=== PATIENT | male | born 1970 | race Two or more races ===

== ENCOUNTER 2016-04-10 15:38 | Inpatient (IN) | payer BC, OTHER ==
[2016-04-10 17:15] VITALS: BMI 21.5
--- NOTE | 2016-04-10 22:31 | HP ---
CIWA Score - CIWA Score Nausea/Vomitin-Mild Nausea/No Vomiting Muscle Tremors: 4-Moderate,w/Arms Extend Anxiety: 4-Mod. Anxious/Guarded Agitation: 4-Moderately Restless Paroxysmal Sweats: 2 Orientation: 0-Oriented Tacttile Disturbances: 0-None Auditory Disturbances: 0-None Visual Disturbances: 0-None Headache: 0-None Present CIWA-Ar Total Score: 15 Admission ROS BHS - HPI Chief Complaint: WITHDRAWAL SX Allergies/Adverse Reactions: Allergies Allergy/AdvReac Type Severity Reaction Status Date / Time shellfish derived Allergy Verified 04/10/16 22:28 History of Present Illness: 46 YEARS OLD MALE WITH LONG HISTORY OF ALCOHOL NICOTINE DEPENDENCE, DENIES MEDICAL HAS DEPRESSION IS ADMITTED TO DETOX Exam Limitations: No Limitations - Ebola screening Have you traveled outside of the country in the last 21 days: No Have you had contact with anyone from an Ebola affected area: No Have you been sick,other than usual withdrawal symptoms: No Do you have a fever: No - Review of Systems Constitutional: Chills, Loss of Appetite, Changes in sleep, Unintentional Wgt. Loss EENT: reports: No Symptoms Reported Respiratory: reports: No Symptoms reported Cardiac: reports: No Symptoms Reported GI: reports: Nausea, Poor Appetite, Poor Fluid Intake, Indigestion, Abdominal cramping : reports: No Symptoms Reported Musculoskeletal: reports: No Symptoms Reported Integumentary: reports: No Symptoms Reported Neuro: reports: Tremors Endocrine: reports: No Symptoms Reported Hematology: reports: No Symptoms Reported Psychiatric: reports: Judgement Intact, Depressed Other Systems: Reviewed and Negative Patient History - Patient Medical History Hx Anemia: No Hx Asthma: No Hx Chronic Obstructive Pulmonary Disease (COPD): No Hx Cancer: No Hx Cardiac Disorders: No Hx Congestive Heart Failure: No Hx Hypertension: No Hx Hypercholesterolemia: No Hx Pacemaker: No HX Cerebrovascular Accident: No Hx Seizures: No Hx Dementia: No Hx Diabetes: No Hx Gastrointestinal Disorders: No Hx Liver Disease: No Hx Genitourinary Disorders: No Hx Sexually Transmitted Disorders: No Hx Renal Disease (ESRD): No Hx Thyroid Disease: No Hx Human Immunodeficiency Virus (HIV): No Hx Hepatitis C: No Hx Depression: Yes Hx Suicide Attempt: Yes (AGE 20 CUT WRIST RIGHT) Hx Bipolar Disorder: No Hx Schizophrenia: No - Patient Surgical History Past Surgical History: No - PPD History Previous Implant?: Yes Documented Results: Negative w/o proof Implanted On Prior [facility] Admission?: No PPD to be Administered?: Yes - Smoking Cessation Smoking history: Current every day smoker Have you smoked in the past 12 months: Yes Aproximately how many cigarettes per day: 10 Cigars Per Day: 0 Hx Chewing Tobacco Use: No Initiated information on smoking cessation: Yes 'Breaking Loose' booklet given: 04/10/16 - Substance & Tx. History Hx Alcohol Use: Yes Hx Substance Use: Yes Substance Use Type: Alcohol, Cocaine Hx Substance Use Treatment: Yes - Substances Abused Alcohol Route: Oral Frequency: Daily Amount used: PINT VOLKA Age of first use: 13 Date of Last Use: 04/10/16 Family Disease History - Family Disease History Family Disease History: Other: Father (), Mother ( BRAIN ANEURYTHSM) Admission Physical Exam S - Vital Signs Vital Signs: Vital Signs - 24 hr 04/10/16 17:12 Temperature 96.8 F L Pulse Rate 103 H Respiratory 20 Rate Blood Pressure 114/60 - Physical General Appearance: Yes: Appropriately Dressed, Mild Distress, Thin, Tremorous, Irritable, Sweating, Anxious HEENTM: Yes: Hearing grossly Normal, Normal ENT Inspection, Normocephalic, Normal Voice Respiratory: Yes: Chest Non-Tender, Lungs Clear, Normal Breath Sounds, No Respiratory Distress, No Accessory Muscle Use Neck: Yes: Supple, Trachea in good position Breast: Yes: Breasts Symetrical Cardiology: Yes: Regular Rhythm, Regular Rate, S1, S2 Abdominal: Yes: Non Tender, Soft Genitourinary: Yes: Within Normal Limits Back: Yes: Normal Inspection Musculoskeletal: Yes: full range of Motion, Gait Steady Extremities: Yes: Normal Range of Motion, Non-Tender, Tremors Neurological: Yes: Fully Oriented, Alert, Motor Strength 5/5, Normal Response, Depressed Affect Integumentary: Yes: Normal Color, Warm Lymphatic: Yes: Within Normal Limits - Diagnostic (1) Alcohol dependence with uncomplicated withdrawal Current Visit: Yes Status: Acute (2) Nicotine dependence Current Visit: Yes Status: Acute Qualifiers: Nicotine product type: cigarettes Substance use status: uncomplicated Qualified Code(s): F17.210 - Nicotine dependence, cigarettes, uncomplicated (3) Weight loss Current Visit: Yes Status: Acute (4) Depression (emotion) Current Visit: Yes Status: Suspected Qualifiers: Depression Type: dysthymia Qualified Code(s): F34.1 - Dysthymic disorder Cleared for Admission [facility] - Detox or Rehab [facility] Level of Care: Medically Managed Detox Regimen/Protocol: Librium [facility] Breath Alcohol Content Breath Alcohol Content: 0 Urine Drug Screen - Results Drug Screen Negative: No Urine Drug Screen Results: GISSELLE-Cocaine
[2016-04-10] MEDS ORDERED: P-EPHED 60MG/TRIPROLIDI 2.5MG TABLET PO PRN (22:35)
[2016-04-10] MEDS ORDERED: ACETAMINOPHEN 325 MG TABLET (FP) PO PRN (22:35)
[2016-04-10] MEDS ORDERED: LOPERAMIDE HCL 2 MG CAPSULE PO PRN (22:35)
[2016-04-10] MEDS ORDERED: chlordiazePOXIDE HCL 25 MG CAPSULE PO PRN (22:35)
[2016-04-10] MEDS ORDERED: NICOTINE POLACRILEX 2 MG GUM BC PRN (22:35)
[2016-04-10] MEDS ORDERED: MAGNESIUM CITRATE 300 ML BOTTLE PO PRN (22:35)
[2016-04-10] MEDS ORDERED: MAG HYDROX/AL HYDROX/SIMETH 30 ML UNIT-DOSE CUP PO PRN (22:35)
[2016-04-10] MEDS ORDERED: IBUPROFEN 400 MG TABLET (FP) PO PRN (22:35)
[2016-04-10] MEDS ORDERED: guaiFENesin/D-METHORPHAN HB 10 ML UNIT-DOSE CUPS PO PRN (22:35)
[2016-04-10] MEDS ORDERED: hydrOXYzine PAMOATE 50 MG CAPSULE (FP) PO PRN (22:35)
[2016-04-10] MEDS ORDERED: MAGNESIUM HYDROX 2400MG/30ML ORAL SUSPENSION 30 ML CUP PO PRN (22:35)
[2016-04-10] MEDS ORDERED: diphenhydrAMINE HCL 50 MG CAPSULE PO PRN (22:35)
[2016-04-10] MEDS ORDERED: MENTHOL/PHENOL 1 EACH UD MM PRN (22:35)
[2016-04-10] MEDS: chlordiazePOXIDE HCL 25 MG CAPSULE PO SCH (23:49)
[2016-04-11] MEDS: chlordiazePOXIDE HCL 25 MG CAPSULE PO SCH ×4 (06:00→22:04)
--- NOTE | 2016-04-11 09:09 | CONSULT ---
[facility] Psychiatric Consult - Data Date of interview: 04/11/16 Admission source: [facility] Identifying data: This is 46 years old male with no psychiatric hospitalization history intoxicated with : Alcohol, and Nicotine Substance Abuse History: - Smoking Cessation. Smoking history: Current every day smoker. Have you smoked in the past 12 months: Yes. Aproximately how many cigarettes per day: 10. Cigars Per Day: 0. Hx Chewing Tobacco Use: No. Initiated information on smoking cessation: Yes. 'Breaking Loose' booklet given : 04/10/16. - Substance & Tx. History. Hx Alcohol Use: Yes. Hx Substance Use : Yes. Substance Use Type: Alcohol, Cocaine. Hx Substance Use Treatment: Yes. - Substances Abused. Alcohol. Route: Oral. Frequency: Daily. Amount used: PINT VOLKA. Age of first use: 13. Date of Last Use: 04/10/16 Medical History: Weight loss history, Psychiatric History: Patient reports history of anxiety and depression, refusing pharmacological intervention, as per computer has a histry taking: Trazodone 100mg po qhs. Wellbutrin 100mg po qhs(?) Physical/Sexual Abuse/Trauma History: Denies Additional Comment: Trazodone 100mg po qhs. Wellbutrin 100mg po qhs(?) Mental Status Exam - Mental Status Exam Alert and Oriented to: Person Cognitive Function: Fair Patient Appearance: Unkempt Mood: Sad Affect: Flat Patient Behavior: Sedated Speech Pattern: Delayed Voice Loudness: Mildly Soft/Quiet Thought Process: Circumstantial Thought Disorder: Present Hallucinations: Denies Suicidal Ideation: Denies Homicidal Ideation: Denies Insight/Judgement: Fair Sleep: Fair Appetite: Weight loss Muscle strength/Tone: Moderate Hypotonicity Gait/Station: Shuffling Additional Comments: Trazodone 100mg po qhs. Wellbutrin 100mg po qhs(?) Psychiatric Findings - Problem List ([place] 1, 2,3) (1) Alcohol dependence with uncomplicated withdrawal Current Visit: Yes Status: Acute (2) Nicotine dependence Current Visit: Yes Status: Acute Qualifiers: Nicotine product type: cigarettes Substance use status: uncomplicated Qualified Code(s): F17.210 - Nicotine dependence, cigarettes, uncomplicated (3) Drug-induced mood disorder Current Visit: Yes Status: Acute (4) Alcohol induced hypersomnia Current Visit: Yes Status: Acute (5) Alcohol-induced mood disorder Current Visit: Yes Status: Acute - Initial Treatment Plan Initial Treatment Plan: Trazodone 100mg po qhs. Wellbutrin 100mg po qhs(?)
--- NOTE | 2016-04-11 09:20 | PN ---
S CIWA - CIWA Score Nausea/Vomitin Muscle Tremors: 3 Anxiety: 3 Agitation: 2 Paroxysmal Sweats: 1-Minimal Palms Moist Orientation: 0-Oriented Tacttile Disturbances: 1-Very Mild Itch/Numbness Auditory Disturbances: 1-Very Mild Visual Disturbances: 1-Very Mild Sensitivity Headache: 2-Mild CIWA-Ar Total Score: 17 BHS Progress Note (SOAP) Subjective: ALERT,IRRITABLE,ANXIOUS,INTERRUPTED SLEEP,TREMOR Objective: 04/11/16 09:19 Vital Signs Temperature 97.0 F L 04/11/16 06:23 Pulse Rate 80 04/11/16 06:23 Respiratory Rate 16 04/11/16 06:23 Blood Pressure 99/67 04/11/16 06:23 O2 Sat by Pulse Oximetry (%) EKG NSR LABS PENDING Assessment: 04/11/16 09:20 WITHDRAWAL SYMPTOM Plan: CONTINUE DETOX
[2016-04-11] MEDS: NICOTINE 14 MG/24 HOURS TOPICAL PATCH TD SCH (10:10)
[2016-04-11] MEDS: PRENATAL VITAMINS W/ FOLIC ACID TABLET (FP) PO SCH (10:10)
[2016-04-11 10:19] LABS: MCH 32.1 pg (25.7-33.7); MEAN CELL VOLUME 97.1 fl (80-96); MEAN PLT VOLUME 8.7 fl (7.5-11.1); PLATELET COUNT 149 K/MM3 (134-434); RDW 13.3 % (11.9-15.9); WHITE BLOOD COUNT 4.6 K/mm3 (4.0-10.0)
[2016-04-11 10:51] LABS: ALBUMIN 3.7 g/dl (3.4-5.0); BILIRUBIN,TOTAL 0.8 mg/dL (0.2-1.0); CALCIUM 8.7 mg/dL (8.5-10.1); CREATININE 1.3 mg/dL (0.7-1.3); TOT PROT 6.8 g/dl (6.4-8.2)
[2016-04-11 17:24] LABS: URINE APPEARANCE CLEAR; URINE BILIRUBIN NEGATIVE (NEGATIVE); URINE BLOOD NEGATIVE (NEGATIVE); URINE COLOR DKYELLOW; URINE GLUCOSE (UA) NEGATIVE (NEGATIVE); URINE KETONE NEGATIVE (NEGATIVE); URINE LEUK ESTERASE NEGATIVE (NEGATIVE); URINE NITRITE NEGATIVE (NEGATIVE); URINE PROTEIN NEGATIVE (NEGATIVE); URINE UROBILINOGEN 2.0 E.U/dl E.U./dl (0.2-1.0)
[2016-04-11 19:44] LABS: HIV 1 & 2 AB NEGATIVE; HIV 1 AGp24 NEGATIVE
[2016-04-11] MEDS: THIAMINE HCL 100 MG TABLET (FP) PO SCH (22:04)
[2016-04-12] MEDS: chlordiazePOXIDE HCL 25 MG CAPSULE PO SCH ×3 (05:18→17:14)
--- NOTE | 2016-04-12 09:06 | PN ---
S CIWA - CIWA Score Nausea/Vomitin Muscle Tremors: 3 Anxiety: 3 Agitation: 3 Paroxysmal Sweats: 1-Minimal Palms Moist Orientation: 0-Oriented Tacttile Disturbances: 1-Very Mild Itch/Numbness Auditory Disturbances: 1-Very Mild Visual Disturbances: 1-Very Mild Sensitivity Headache: 2-Mild CIWA-Ar Total Score: 18 BHS Progress Note (SOAP) Subjective: alert,irritable,anxious,interrupted sleep,tremor Objective: 04/12/16 09:05 Vital Signs Temperature 98 F 04/12/16 06:12 Pulse Rate 83 04/12/16 06:12 Respiratory Rate 18 04/12/16 06:12 Blood Pressure 104/73 04/12/16 06:12 O2 Sat by Pulse Oximetry (%) Laboratory Last Values WBC 4.6 K/mm3 (4.0-10.0) 04/11/16 07:00 RBC 4.44 M/mm3 (4.00-5.60) 04/11/16 07:00 Hgb 14.2 GM/dL (11.7-16.9) 04/11/16 07:00 Hct 43.1 % (35.4-49) 04/11/16 07:00 MCV 97.1 fl (80-96) H 04/11/16 07:00 MCHC 33.0 g/dl (32.0-35.9) 04/11/16 07:00 RDW 13.3 % (11.9-15.9) 04/11/16 07:00 Plt Count 149 K/MM3 (134-434) 04/11/16 07:00 MPV 8.7 fl (7.5-11.1) 04/11/16 07:00 Sodium 145 mmol/L (136-145) 04/11/16 07:00 Potassium 3.8 mmol/L (3.5-5.1) 04/11/16 07:00 Chloride 108 mmol/L (98-107) H 04/11/16 07:00 Carbon Dioxide 29 mmol/L (21-32) 04/11/16 07:00 Anion Gap 8 (8-16) 04/11/16 07:00 BUN 14 mg/dL (7-18) 04/11/16 07:00 Creatinine 1.3 mg/dL (0.7-1.3) 04/11/16 07:00 Creat Clearance w eGFR 59.70 (>60) 04/11/16 07:00 Random Glucose 89 mg/dL (74-106) 04/11/16 07:00 Calcium 8.7 mg/dL (8.5-10.1) 04/11/16 07:00 Total Bilirubin 0.8 mg/dL (0.2-1.0) 04/11/16 07:00 AST 16 U/L (15-37) 04/11/16 07:00 ALT 25 U/L (12-78) 04/11/16 07:00 Alkaline Phosphatase 65 U/L (45-117) 04/11/16 07:00 Total Protein 6.8 g/dl (6.4-8.2) 04/11/16 07:00 Albumin 3.7 g/dl (3.4-5.0) 04/11/16 07:00 Urine Color Dkyellow 04/11/16 15:00 Urine Appearance Clear 04/11/16 15:00 Urine pH 5.0 (5.0-8.0) 04/11/16 15:00 Ur Specific [place] 1.025 (1.001-1.035) 04/11/16 15:00 Urine Protein Negative (NEGATIVE) 04/11/16 15:00 Urine Glucose (UA) Negative (NEGATIVE) 04/11/16 15:00 Urine Ketones Negative (NEGATIVE) 04/11/16 15:00 Urine Blood Negative (NEGATIVE) 04/11/16 15:00 Urine Nitrite Negative (NEGATIVE) 04/11/16 15:00 Urine Bilirubin Negative (NEGATIVE) 04/11/16 15:00 Urine Urobilinogen 2.0 e.u/dl E.U./dl (0.2-1.0) 04/11/16 15:00 Ur Leukocyte Esterase Negative (NEGATIVE) 04/11/16 15:00 RPR Titer Nonreactive (NONREACTIVE) 04/11/16 07:00 HIV 1&2 Antibody Screen Negative 04/11/16 11:40 HIV P24 Antigen Negative 04/11/16 11:40 Assessment: 04/12/16 09:05 withdrawal symptom Plan: continue detox
[2016-04-12] MEDS: NICOTINE 14 MG/24 HOURS TOPICAL PATCH TD SCH (10:04)
[2016-04-12] MEDS: PRENATAL VITAMINS W/ FOLIC ACID TABLET (FP) PO SCH (10:04)
[2016-04-12] MEDS: THIAMINE HCL 100 MG TABLET (FP) PO SCH (22:05)
[2016-04-12] MEDS: chlordiazePOXIDE 5 MG CAPSULE PO SCH (22:05)
[2016-04-13] MEDS: chlordiazePOXIDE 5 MG CAPSULE PO SCH ×3 (05:36→17:10)
[2016-04-13] MEDS: PRENATAL VITAMINS W/ FOLIC ACID TABLET (FP) PO SCH (10:11)
[2016-04-13] MEDS: NICOTINE 14 MG/24 HOURS TOPICAL PATCH TD SCH (10:11)
--- NOTE | 2016-04-13 11:10 | PN ---
BHS Progress Note (SOAP) Subjective: sweating,interrupted sleep,restless. Objective: 04/13/16 11:09 Vital Signs - 8 hr 04/13/16 04/13/16 04/13/16 03:30 06:21 10:27 Temperature 97.9 F 98.9 F Pulse Rate 90 111 H Respiratory 18 18 20 Rate Blood Pressure 101/67 98/71 Laboratory Last Values WBC 4.6 K/mm3 (4.0-10.0) 04/11/16 07:00 RBC 4.44 M/mm3 (4.00-5.60) 04/11/16 07:00 Hgb 14.2 GM/dL (11.7-16.9) 04/11/16 07:00 Hct 43.1 % (35.4-49) 04/11/16 07:00 MCV 97.1 fl (80-96) H 04/11/16 07:00 MCHC 33.0 g/dl (32.0-35.9) 04/11/16 07:00 RDW 13.3 % (11.9-15.9) 04/11/16 07:00 Plt Count 149 K/MM3 (134-434) 04/11/16 07:00 MPV 8.7 fl (7.5-11.1) 04/11/16 07:00 Sodium 145 mmol/L (136-145) 04/11/16 07:00 Potassium 3.8 mmol/L (3.5-5.1) 04/11/16 07:00 Chloride 108 mmol/L (98-107) H 04/11/16 07:00 Carbon Dioxide 29 mmol/L (21-32) 04/11/16 07:00 Anion Gap 8 (8-16) 04/11/16 07:00 BUN 14 mg/dL (7-18) 04/11/16 07:00 Creatinine 1.3 mg/dL (0.7-1.3) 04/11/16 07:00 Creat Clearance w eGFR 59.70 (>60) 04/11/16 07:00 Random Glucose 89 mg/dL (74-106) 04/11/16 07:00 Calcium 8.7 mg/dL (8.5-10.1) 04/11/16 07:00 Total Bilirubin 0.8 mg/dL (0.2-1.0) 04/11/16 07:00 AST 16 U/L (15-37) 04/11/16 07:00 ALT 25 U/L (12-78) 04/11/16 07:00 Alkaline Phosphatase 65 U/L (45-117) 04/11/16 07:00 Total Protein 6.8 g/dl (6.4-8.2) 04/11/16 07:00 Albumin 3.7 g/dl (3.4-5.0) 04/11/16 07:00 Urine Color Dkyellow 04/11/16 15:00 Urine Appearance Clear 04/11/16 15:00 Urine pH 5.0 (5.0-8.0) 04/11/16 15:00 Ur Specific [place] 1.025 (1.001-1.035) 04/11/16 15:00 Urine Protein Negative (NEGATIVE) 04/11/16 15:00 Urine Glucose (UA) Negative (NEGATIVE) 04/11/16 15:00 Urine Ketones Negative (NEGATIVE) 04/11/16 15:00 Urine Blood Negative (NEGATIVE) 04/11/16 15:00 Urine Nitrite Negative (NEGATIVE) 04/11/16 15:00 Urine Bilirubin Negative (NEGATIVE) 04/11/16 15:00 Urine Urobilinogen 2.0 e.u/dl E.U./dl (0.2-1.0) 04/11/16 15:00 Ur Leukocyte Esterase Negative (NEGATIVE) 04/11/16 15:00 RPR Titer Nonreactive (NONREACTIVE) 04/11/16 07:00 HIV 1&2 Antibody Screen Negative 04/11/16 11:40 HIV P24 Antigen Negative 04/11/16 11:40 labs noted Assessment: 04/13/16 11:10 withdrawal sx. Plan: continue detox
[2016-04-13] MEDS: THIAMINE HCL 100 MG TABLET (FP) PO SCH (22:29)
[2016-04-13] MEDS: chlordiazePOXIDE HCL 10 MG CAPSULE PO SCH (22:30)
[2016-04-14] MEDS: chlordiazePOXIDE HCL 10 MG CAPSULE PO SCH (05:32)
[2016-04-14 06:10] VITALS: BP 95/69; PULSE 90; TEMP 97.1
--- NOTE | 2016-04-14 11:44 | DS ---
[facility] Detox Discharge Summary Admission Date: 04/10/16 Discharge Date: 04/14/16 - History Present History: Alcohol Dependence Pertinent Past History: Denies - Physical Exam Results Vital Signs: Vital Signs Temperature 97.1 F L 04/14/16 06:10 Pulse Rate 90 04/14/16 06:10 Respiratory Rate 18 04/14/16 06:10 Blood Pressure 95/69 04/14/16 06:10 O2 Sat by Pulse Oximetry (%) Pertinent Admission Physical Exam Findings: Withdrawal symptoms Laboratory Tests 04/11/16 04/11/16 04/11/16 07:00 07:00 07:00 WBC 4.6 RBC 4.44 Hgb 14.2 Hct 43.1 MCV 97.1 H MCHC 33.0 RDW 13.3 Plt Count 149 MPV 8.7 Sodium 145 Potassium 3.8 Chloride 108 H Carbon Dioxide 29 Anion Gap 8 BUN 14 Creatinine 1.3 Creat Clearance w eGFR 59.70 Random Glucose 89 Calcium 8.7 Total Bilirubin 0.8 AST 16 ALT 25 Alkaline Phosphatase 65 Total Protein 6.8 Albumin 3.7 Urine Color Urine Appearance Urine pH Ur Specific [place] Urine Protein Urine Glucose (UA) Urine Ketones Urine Blood Urine Nitrite Urine Bilirubin Urine Urobilinogen Ur Leukocyte Esterase RPR Titer Nonreactive HIV 1&2 Antibody Screen HIV P24 Antigen 04/11/16 04/11/16 11:40 15:00 WBC RBC Hgb Hct MCV MCHC RDW Plt Count MPV Sodium Potassium Chloride Carbon Dioxide Anion Gap BUN Creatinine Creat Clearance w eGFR Random Glucose Calcium Total Bilirubin AST ALT Alkaline Phosphatase Total Protein Albumin Urine Color Dkyellow Urine Appearance Clear Urine pH 5.0 Ur Specific [place] 1.025 Urine Protein Negative Urine Glucose (UA) Negative Urine Ketones Negative Urine Blood Negative Urine Nitrite Negative Urine Bilirubin Negative Urine Urobilinogen 2.0 e.u/dl Ur Leukocyte Esterase Negative RPR Titer HIV 1&2 Antibody Screen Negative HIV P24 Antigen Negative Labs noted - Treatment Hospital Course: Detox Protocol Followed, Detoxed Safely, Responded well, Discharged Condition Good - Medication Discharge Medications: Ambulatory Orders Bupropion HCl [Wellbutrin -] 100 mg PO HS 04/10/16 Trazodone HCl 100 mg PO HS 04/10/16 - Diagnosis (1) Alcohol dependence with uncomplicated withdrawal Status: Acute - AMA Did Patient Leave Against Medical Advice: No
--- NOTE | 2016-04-17 09:48 | EKG ---
Test Reason : Blood Pressure : / mmHG Vent. Rate : 061 BPM Atrial Rate : 061 BPM P-R Int : 160 ms QRS Dur : 090 ms QT Int : 442 ms P-R-T Axes : 061 006 053 degrees QTc Int : 444 ms NORMAL SINUS RHYTHM NORMAL ECG NO PREVIOUS ECGS AVAILABLE Confirmed by ANUSHA LEACH, JAMAL ([id number]) on 04/17/2016 9:47:42 AM Referred By: Sorin Fournier Confirmed By:JAMAL TAVARES MD
== END 2016-04-14 09:34 | disposition home or self-care (01) | DRG 897 ==
LOC: YASAS 15:38 → Y3N 21:51
PROVIDERS: ADMIT Internal Medicine; ATTEND Internal Medicine
PROC: HZ2ZZZZ Detoxification Services for Substance Abuse Treatment (ICD-10-PCS; principal; 2016-04-10)
DX: F10.230 Alcohol dependence with withdrawal, uncomplicated (principal); F10.24 Alcohol dependence with alcohol-induced mood disorder; F10.282 Alcohol dependence with alcohol-induced sleep disorder; F17.210 Nicotine dependence, cigarettes, uncomplicated; F19.24 Other psychoactive substance dependence with psychoactive substance-induced mood disorder; F34.1 Dysthymic disorder; Z91.5 Personal history of self-harm; Z87.898 Personal history of other specified conditions
CPT/HCPCS: 36415; 71020-TC; 80053; 81003; 85027; 86593; 87389; 93005; 93010